=== PATIENT | female | born 1970 | race African-American/Black ===

== ENCOUNTER 2017-01-11 08:45 | Day surgery (SDC) | payer BC ==
[2017-01-09 09:42] VITALS: BMI 25.2
[~2017-01-11 08:45] MED LIST: LACTATED RINGERS 1,000 ML IV SCH; LIDOCAINE 1% 20 ML VIAL (10MG/ML) FOR IV START INTRADERMA PRN
[2017-01-11 09:19] VITALS: TEMP 98.7
[2017-01-11] MEDS ORDERED: PROPOFOL 10 MG/ML 20 ML VIAL IV ONE (09:29)
[2017-01-11 10:07] VITALS: PULSE 83; RESP 16
[2017-01-11 10:11] VITALS: BP 134/93
--- NOTE | 2017-01-11 10:13 | P.PCN ---
Date of Procedure: 01/11/17 Procedure(s) Performed: BRIEF HISTORY: Patient is a 46-year-old pleasant -[place]ag[place] female scheduled for an elective colonoscopy as a part of evaluation of prior history of colon polyps. She last colonoscopy was 4 years ago and was noted to have a tubular adenoma. PROCEDURE PERFORMED: Colonoscopy. PREOPERATIVE DIAGNOSIS: History of colon polyps. IV sedation per Anesthesia. PROCEDURE: After informed consent was obtained, the patient, was brought into the endoscopy unit. IV sedation was administered by Anesthesia under continuous monitoring. Digital rectal examination was normal. Initially the Olympus CF- 160 flexible video colonoscope was then inserted in the rectum, gradually advanced into the cecum without any difficulty. Careful examination was performed as the scope was gradually being withdrawn. Ileocecal valve and the appendiceal orifice were visualized and appeared normal. Prep was excellent. Mucosa of the cecum, ascending colon, transverse colon, descending colon, sigmoid colon, and rectum appeared normal. Retroflexion was performed in the rectum and no lesions were seen. The patient tolerated the procedure well. IMPRESSION: Normal-appearing colon from rectum to cecum with no evidence of colorectal neoplasia. Small internal hemorrhoids. RECOMMENDATIONS: Findings of this examination were discussed with the patient as well as her family. She was advised to have a repeat surveillance colonoscopy in 5 years from now.
== END 2017-01-11 10:54 | disposition home or self-care (01) ==
LOC: ORWHC2ENDO 08:45
PROVIDERS: ATTEND Internal Medicine Gastroenterology
DX: Z12.11 Encounter for screening for malignant neoplasm of colon (principal); K64.8 Other hemorrhoids; Z86.010 Personal history of colon polyps
CPT/HCPCS: 81025; G0105; J2704